=== PATIENT | female | born 1970 | race Hispanic/Latino ===

== ENCOUNTER 2020-03-01 09:20 | Emergency (ER) | payer OTHER, SELFPAY ==
[2020-03-02 14:31] LABS: SARS-CoV-2 MS2 Positive; SARS-CoV-2 N Gene Positive; SARS-CoV-2 S Gene Positive; SARS-CoV-2 orf1ab Positive
== END 2020-03-01 10:32 | disposition home or self-care (01) ==
LOC: ERS 09:20
DX: U07.1 COVID-19 (principal)
CPT/HCPCS: 87635; 99283; U0003

== ENCOUNTER 2020-03-10 21:35 | Inpatient (IN) | payer OTHER, SELFPAY ==
[2020-03-10] MEDS ORDERED: Ondansetron PF 4 MG/2 ML Vial ONE (21:52)
[2020-03-10 22:01] LABS: #Lymphocytes 0.9 thou/uL (1.20-3.40); #Monocytes 0.4 thou/uL (0.11-0.59); %Basophils 0.1 % (0.0-1.0); %Eosinophils 0.1 % (0.0-10.0); %Lymphocytes 7.3 % (21.0-51.0); %Monocytes 3.2 % (0.0-10.0); %Neutrophils 89.4 % (42.0-75.0); Hemoglobin 13.8 g/dL (12.0-16.0); Mean Corpuscular HGB CONC 30.5 g/dL (32.0-36.0); Mean Corpuscular Hemoglobin 25.4 pg (27.0-31.0); Mean Corpuscular Volume 83.4 fL (78.0-98.0); Mean Platelet Volume 7.5 fL (7.4-10.4); Platelet Count 315 thou/uL (130-400); RBC Distribution Width 15.3 % (11.5-14.5); Red Blood Cell (RBC) Count 5.43 mill/uL (4.20-5.40); White Blood Cell (WBC) Count 12.3 thou/uL (4.8-10.8)
--- NOTE | 2020-03-10 22:05 | RAD ---
Exam: Chest one view HISTORY:Decreased O2 saturation Comparison: None FINDINGS: Cardiac silhouette: Normal Aorta: Unremarkable Pulmonary vessels: Normal Costophrenic angles: Clear LUNGS: Patchy interstitial opacities with a predominantly bibasilar and perihilar distribution. Pneumothorax: None Osseous abnormalities: None IMPRESSION: Interstitial opacities, worrisome for infiltrate.
[2020-03-10] MEDS ORDERED: Metoclopramide HCl 10 MG/2 ML VIAL ONE (22:10)
[2020-03-10] MEDS ORDERED: Dexamethasone 10 MG/ML VIAL ONE (22:10)
[2020-03-10] MEDS ORDERED: Albuterol 200 PUFF (6.7GM INHALER) ONE (22:15)
[2020-03-10 22:20] LABS: ALT (SGPT) 71 U/L (8-55); AST (SGOT) 45 U/L (5-34); Albumin 3.6 g/dL (3.5-5.0); Alkaline Phosphatase 147 U/L (40-110); Anion Gap 15 mmol/L (10-20); BUN (Urea Nitrogen) 13 mg/dL (7.0-18.7); Bilirubin, Total 0.5 mg/dL (0.2-1.2); Calc. Creatinine Clearance 0 mL/min (70-130); Calcium 8.8 mg/dL (7.8-10.44); Carbon Dioxide 24 mmol/L (22-29); Chloride 106 mmol/L (98-107); Estimated GFR-MDRD 83; Globulin 3.8 g/dL (2.4-3.5); Glucose 125 mg/dL (70-105); Potassium 3.5 mmol/L (3.5-5.1); Protein, Total 7.4 g/dL (6.0-8.3); Sodium 141 mmol/L (136-145)
[2020-03-10] MEDS ORDERED: Azithromycin 500 MG VIAL ONE (23:03)
[2020-03-11] MEDS ORDERED: Ondansetron ODT 4 MG TAB SL PRN (01:40)
[2020-03-11] MEDS ORDERED: Ondansetron PF 4 MG/2 ML Vial IVP PRN ×2 (01:40→03:44)
[2020-03-11 01:59] VITALS: BMI 32.3
[2020-03-11] MEDS ORDERED: Acetaminophen 325 MG TAB PO PRN (02:26)
[2020-03-11] MEDS ORDERED: Guaifenesin DM 100-10/5 ML UDCUP PO PRN (03:44)
[2020-03-11] MEDS ORDERED: HYDROcodone/Acetaminophen 5/325 mg Tablet PO PRN (03:44)
[2020-03-11] MEDS ORDERED: Morphine 2 MG/ML VIAL SLOW IVP PRN (03:44)
[2020-03-11] MEDS ORDERED: Labetalol HCl 100 MG/20 ML VIAL SLOW IVP PRN (03:44)
[2020-03-11] MEDS ORDERED: hydrALAZINE 20 MG/ML VIAL SLOW IVP PRN (03:44)
[2020-03-11] MEDS ORDERED: cloNIDine 0.1 MG TAB PO PRN (03:44)
[2020-03-11] MEDS ORDERED: Promethazine HCl 12.5 MG in Sodium Chloride 0.9% 50 ML IVPB PRN (03:44)
[2020-03-11] MEDS ORDERED: Bisacodyl 10 MG SUPP PR PRN (03:45)
[2020-03-11] MEDS ORDERED: Bisacodyl 5 MG TAB PO PRN (03:45)
--- NOTE | 2020-03-11 03:48 | PDOC.HHP ---
Hospitalist HPI - History of Present Illness Hypoxia History of Present Illness: Patient is a 49 year old female with no significant PMH who presents to hospital for continued fever and shortness of breath in setting of COVID 19 infection. She was discharged from the hospital yesterday for covid 19 infection. She states that since her discharge her dyspnea has gotten worse and she has had nausea and vomiting. She states that she is unable to hold anything down. She notes a fever at home of 102. Upon presentation to ED she was noted to be in moderate respiratory distress with oxygen saturation in the upper 80s. On 4 L nasal cannula her oxygen saturation improved to 94%. She is comfortable now, complains of pain when she coughs. In ED, WBC 12, RR elevated, febrile in ED. CXR concerning for COVID pneumonia. Patient to be admitted for COVID 19 with likely progressive viral pnemonia and sepsis. Hospitalist ROS - Review of Systems Constitutional: reports: fever, chills, sweats, weakness Eyes: denies: pain, vision change, conjunctivae inflammation, eyelid inflammation, redness, other ENT: denies: ear pain, ear discharge, nose pain, nose discharge, nose congestion , mouth pain, mouth swelling, throat pain, throat swelling, other Respiratory: reports: shortness of breath. denies: cough, dry, hemoptysis, SOB with excertion, pleuritic pain, sputum, wheezing, other Cardiovascular: denies: chest pain, palpitations, orthopnea, paroxysmal noc. dyspnea, edema, light headedness, other Gastrointestinal: reports: nausea, vomiting. denies: abdominal pain, diarrhea, constipation, melena, hematochezia, other Genitourinary: denies: dysuria, frequency, incontinence, hematuria, retention, other Musculoskeletal: denies: neck pain, shoulder pain, arm pain, back pain, hand pain, leg pain, foot pain, other Skin: denies: rash, lesions, modesta, bruising, other Neurological: denies: weakness, numbness, incoordination, change in speech, confusion, seizures, other All other systems reviewed; all pertinent +/- noted in HPI/Subj - Medication Medications: Active Medications Generic Name Dose Route Start Last Admin Trade Name Freq PRN Reason Stop Dose Admin Acetaminophen 650 mg 03/11/20 02:26 03/11/20 02:32 Tylenol PO 650 mg Q4H PRN Administration Headache/Fever or Pain Hospitalist History - Past Medical History Other Medical History: no significant medical history - Past Surgical History Past Surgical History: reports: no pertinent history - Family History Family History: reports: no pertinent history - Social History Smoking Status: Never smoker Alcohol: reports: None Drugs: reports: none - Exam General Appearance: NAD, awake alert Eye: PERRL, anicteric sclera ENT: normocephalic atraumatic, no oropharyngeal lesions, moist mucosa Neck: supple, symmetric, no JVD, no thyromegaly, no lymphadenopathy, no carotid bruit Heart: RRR, no murmur, no gallops, no rubs, normal peripheral pulses Respiratory: CTAB, no wheezes, no rales, no ronchi, normal chest expansion, no tachypnea, normal percussion Gastrointestinal: soft, non-tender, non-distended, normal bowel sounds, no palpable masses, no hepatomegaly, no splenomegaly, no bruit Extremities: no cyanosis, no clubbing, no edema Skin: normal turgor, no lesions, no rashes Neurological: cranial nerve grossly intact, normal sensation to touch, no weakness, no focal deficits, no new deficit Musculoskeletal: normal tone, normal strength, no muscle wasting Psychiatric: normal affect, normal behavior, A&O x 3 Hospitalist Results - Labs Result Diagrams: 03/10/20 21:45 03/10/20 21:45 Lab results: WBC 12.3 thou/uL (4.8-10.8) H 03/10/20 21:45 Hgb 13.8 g/dL (12.0-16.0) 03/10/20 21:45 Hct 45.2 % (36.0-47.0) 03/10/20 21:45 MCV 83.4 fL (78.0-98.0) 03/10/20 21:45 Plt Count 315 thou/uL (130-400) 03/10/20 21:45 Neutrophils % 89.4 % (42.0-75.0) H 03/10/20 21:45 Sodium 141 mmol/L (136-145) 03/10/20 21:45 Potassium 3.5 mmol/L (3.5-5.1) 03/10/20 21:45 Chloride 106 mmol/L (98-107) 03/10/20 21:45 Carbon Dioxide 24 mmol/L (22-29) 03/10/20 21:45 BUN 13 mg/dL (7.0-18.7) 03/10/20 21:45 Creatinine 0.74 mg/dL (0.6-1.1) 03/10/20 21:45 Glucose 125 mg/dL (70-105) H 03/10/20 21:45 Lactic Acid 1.6 mmol/L (0.5-2.2) 03/10/20 22:05 Calcium 8.8 mg/dL (7.8-10.44) 03/10/20 21:45 Total Bilirubin 0.5 mg/dL (0.2-1.2) 03/10/20 21:45 AST 45 U/L (5-34) H 03/10/20 21:45 ALT 71 U/L (8-55) H 03/10/20 21:45 Alkaline Phosphatase 147 U/L (40-110) H 03/10/20 21:45 Troponin I Less than 0.010 ng/mL (< 0.028) 03/10/20 21:45 Serum Total Protein 7.4 g/dL (6.0-8.3) 03/10/20 21:45 Albumin 3.6 g/dL (3.5-5.0) 03/10/20 21:45 Additional comment: VITAL SIGNS [facility] Mar 11, 2020 01:14 LAURA Miramontes, Cindy BP: 113/53 Pulse: 76 Resp: 27 Temp: 101.7 (Oral) Pain: 0 O2 sat: 94 on (4L Oxygen) Time: 03/11/2020 01:14. CXR report reviewed, interstitial opacities worrisome for infiltrate Hospitalist H&P A/P - Plan Plan: Patient is a 49 year old female with no significant PMH who presents to hospital for continued fever and shortness of breath in setting of COVID 19 infection. # COVID 19 infection w/ viral pneumonia # sepsis due to COVID 19 infection - admit to medical [facility] - continue O2 by nasal cannula w/ precautions - decadron, azithromycin - monitor closely DVT/GI ppx Full code
[2020-03-11] MEDS: Famotidine 20 MG TAB PO SCH ×2 (09:10→21:18)
[2020-03-11] MEDS: Enoxaparin Sodium 40 MG/0.4 ML SYRINGE SC SCH (09:10)
--- NOTE | 2020-03-11 15:35 | PDOC.EVN ---
Event Note - Event Note Event Note: This was reviewed. Patient was seen and examined. She was admitted to this facility and discharged after a couple of days with home Decadron. She subsequently had worsening respiratory distress and return to the hospital. She is now requiring 4 L of oxygen however she is feeling somewhat better with that. She did have an episode of diarrhea this morning which was the first time. She has some scattered bilateral rales on exam. I confirmed that she was not on antibiotics at her previous admission. Unfortunately the patient has 2 separate records within the computer system making it difficult to see her previous admission. Nonetheless, her inflammatory markers will be repeated. She is actually on day 10 of the initiation of her symptoms. Will discuss with ID regarding consideration for him to severe. Continue the Decadron and supplemental oxygen.
[2020-03-11] MEDS: Acetaminophen 325 MG TAB PO PRN ×2 (15:37→21:18)
[2020-03-11] MEDS ORDERED: REMDESIVIR (EUA) 200 MG in Sodium Chloride 0.9% 250 ML 210 ML IV SCH (16:00)
[2020-03-11] MEDS: Dexamethasone 10 MG/ML VIAL SLOW IVP SCH (21:17)
[2020-03-12] MEDS ORDERED: Azithromycin 500 MG in Sodium Chloride 0.9% 250 ML 250 ML IVPB SCH (01:00)
[2020-03-12 05:33] LABS: #Lymphocytes 0.7 thou/uL (1.20-3.40); #Monocytes 0.2 thou/uL (0.11-0.59); #Neutrophils 8.5 thou/uL (1.40-6.50); %Basophils 0.1 % (0.0-1.0); %Eosinophils 0.1 % (0.0-10.0); %Lymphocytes 7.3 % (21.0-51.0); %Monocytes 2.4 % (0.0-10.0); %Neutrophils 90.1 % (42.0-75.0); Mean Corpuscular HGB CONC 31.2 g/dL (32.0-36.0); Mean Corpuscular Hemoglobin 26.1 pg (27.0-31.0); Mean Corpuscular Volume 83.7 fL (78.0-98.0); Mean Platelet Volume 7.3 fL (7.4-10.4); Platelet Count 348 thou/uL (130-400); RBC Distribution Width 15.1 % (11.5-14.5); Red Blood Cell (RBC) Count 4.97 mill/uL (4.20-5.40); White Blood Cell (WBC) Count 9.4 thou/uL (4.8-10.8)
[2020-03-12 05:54] LABS: ALT (SGPT) 49 U/L (8-55); AST (SGOT) 24 U/L (5-34); Albumin 3.2 g/dL (3.5-5.0); Alkaline Phosphatase 132 U/L (40-110); Anion Gap 12 mmol/L (10-20); BUN (Urea Nitrogen) 18 mg/dL (7.0-18.7); Bilirubin, Total 0.4 mg/dL (0.2-1.2); Calc. Creatinine Clearance 119 mL/min (70-130); Calcium 8.9 mg/dL (7.8-10.44); Carbon Dioxide 26 mmol/L (22-29); Chloride 108 mmol/L (98-107); Estimated GFR-MDRD 90; Globulin 3.6 g/dL (2.4-3.5); Glucose 125 mg/dL (70-105); Potassium 3.9 mmol/L (3.5-5.1); Protein, Total 6.8 g/dL (6.0-8.3); Sodium 142 mmol/L (136-145)
[2020-03-12] MEDS: Famotidine 20 MG TAB PO SCH ×2 (07:38→20:27)
[2020-03-12] MEDS: Enoxaparin Sodium 40 MG/0.4 ML SYRINGE SC SCH (07:38)
[2020-03-12] MEDS: REMDESIVIR (EUA) 100 MG in Sodium Chloride 0.9% 250 ML 230 ML IV SCH (17:22)
--- NOTE | 2020-03-12 18:45 | PDOC.HOSPP ---
- Subjective Encounter Date: 03/12/20 Subjective: Patient reports she is feeling somewhat better today. Feels like the medications are helping. Breathing a bit easier. Able to move around the room a bit today. - Objective Vital Signs & Weight: Vital Signs (12 hours) Temp Pulse Resp BP Pulse Ox 03/12/20 17:23 98.9 F 59 L 24 H 116/60 97 03/12/20 12:00 98 F 58 L 20 125/80 97 03/12/20 08:00 98.2 F 61 28 H 133/73 98 Weight Admit Weight 170 lb 14.4 oz Weight 170 lb 14.4 oz I&O: 03/11/20 03/12/20 03/13/20 06:59 06:59 06:59 Intake Total 650 1160 Output Total 700 Balance 650 460 Result Diagrams: 03/12/20 05:04 03/12/20 05:05 Hospitalist ROS - Medication Medications: Active Medications Generic Name Dose Route Start Last Admin Trade Name Freq PRN Reason Stop Dose Admin Acetaminophen 650 mg 03/11/20 03:44 03/11/20 21:18 Tylenol PO 650 mg Q4H PRN Administration Headache/Fever/Mild Pain (1-3) Dexamethasone 6 mg 03/11/20 21:00 03/11/20 21:17 Decadron SLOW IVP 6 mg 2100 PANCHITO Administration Enoxaparin Sodium 40 mg 03/11/20 09:00 03/12/20 07:38 Lovenox SC 40 mg 0900 PANCHITO Administration Famotidine 20 mg 03/11/20 09:00 03/12/20 07:38 Pepcid PO 20 mg BID PANCHITO Administration REMDESIVIR (EUA) 100 mg/ 250 mls @ 250 mls/hr 03/12/20 16:00 03/12/20 17:22 Sodium Chloride IV 03/15/20 16:59 250 mls 1600 PANCHITO Administration - Exam General Appearance: NAD, awake alert Heart: RRR, no murmur, no gallops, no rubs, normal peripheral pulses Respiratory: no wheezes, no ronchi, normal chest expansion, no tachypnea, normal percussion, rales (Modest scattered.) Gastrointestinal: soft, non-tender, non-distended, normal bowel sounds, no palpable masses, no hepatomegaly, no splenomegaly, no bruit Extremities: no cyanosis, no clubbing, no edema Skin: normal turgor, no lesions, no rashes Neurological: cranial nerve grossly intact, normal sensation to touch, no weakness, no focal deficits, no new deficit Musculoskeletal: normal tone, normal strength, no muscle wasting Psychiatric: normal affect, normal behavior, A&O x 3 Hosp A/P (1) Acute respiratory failure with hypoxia Code(s): J96.01 - ACUTE RESPIRATORY FAILURE WITH HYPOXIA Status: Acute (2) COVID-19 virus infection Code(s): U07.1 - COVID-19 Status: Acute (3) Viral pneumonia Code(s): J12.9 - VIRAL PNEUMONIA, UNSPECIFIED Status: Acute - Plan Continue with supplemental oxygen. Continue with remdesivir, Decadron. She will need to complete a 5-day course of the Remdesivir. Maintain modest ambulation.
[2020-03-12] MEDS: Dexamethasone 10 MG/ML VIAL SLOW IVP SCH (20:27)
[2020-03-13 05:16] LABS: #Lymphocytes 0.7 thou/uL (1.20-3.40); #Monocytes 0.4 thou/uL (0.11-0.59); #Neutrophils 4.8 thou/uL (1.40-6.50); %Basophils 0.3 % (0.0-1.0); %Eosinophils 0.2 % (0.0-10.0); %Lymphocytes 11.3 % (21.0-51.0); %Neutrophils 82.3 % (42.0-75.0); Hemoglobin 12.7 g/dL (12.0-16.0); Mean Corpuscular HGB CONC 31.6 g/dL (32.0-36.0); Mean Corpuscular Hemoglobin 26.3 pg (27.0-31.0); Mean Corpuscular Volume 83.2 fL (78.0-98.0); Mean Platelet Volume 7.5 fL (7.4-10.4); Platelet Count 405 thou/uL (130-400); RBC Distribution Width 15.1 % (11.5-14.5); Red Blood Cell (RBC) Count 4.81 mill/uL (4.20-5.40); White Blood Cell (WBC) Count 5.8 thou/uL (4.8-10.8)
[2020-03-13 05:45] LABS: ALT (SGPT) 46 U/L (8-55); AST (SGOT) 21 U/L (5-34); Albumin 3.2 g/dL (3.5-5.0); Alkaline Phosphatase 125 U/L (40-110); Anion Gap 12 mmol/L (10-20); BUN (Urea Nitrogen) 18 mg/dL (7.0-18.7); Bilirubin, Total 0.3 mg/dL (0.2-1.2); Calc. Creatinine Clearance 121 mL/min (70-130); Calcium 8.8 mg/dL (7.8-10.44); Carbon Dioxide 26 mmol/L (22-29); Chloride 109 mmol/L (98-107); Estimated GFR-MDRD Greater than 90; Globulin 3.5 g/dL (2.4-3.5); Glucose 154 mg/dL (70-105); Potassium 4.1 mmol/L (3.5-5.1); Protein, Total 6.7 g/dL (6.0-8.3); Sodium 143 mmol/L (136-145)
[2020-03-13] MEDS: Famotidine 20 MG TAB PO SCH ×2 (09:20→20:30)
[2020-03-13] MEDS: Enoxaparin Sodium 40 MG/0.4 ML SYRINGE SC SCH (09:21)
--- NOTE | 2020-03-13 11:03 | PDOC.HOSPP ---
- Subjective Encounter Date: 03/13/20 Subjective: Doing very well today. She is down to 2 L nasal cannula and feels like her breathing is much improved. Still has mild cough. - Objective Vital Signs & Weight: Vital Signs (12 hours) Temp Pulse Resp BP Pulse Ox 03/13/20 03:41 98.6 F 59 L 20 132/68 96 03/13/20 00:00 98.5 F 82 20 137/86 97 Weight Admit Weight 170 lb 14.4 oz Weight 170 lb 14.4 oz I&O: 03/12/20 03/13/20 03/14/20 06:59 06:59 06:59 Intake Total 1160 1660 Output Total 700 1850 Balance 460 -190 Result Diagrams: 03/13/20 04:53 03/13/20 04:53 Hospitalist ROS - Medication Medications: Active Medications Generic Name Dose Route Start Last Admin Trade Name Freq PRN Reason Stop Dose Admin Acetaminophen 650 mg 03/11/20 03:44 03/11/20 21:18 Tylenol PO 650 mg Q4H PRN Administration Headache/Fever/Mild Pain (1-3) Dexamethasone 6 mg 03/11/20 21:00 03/12/20 20:27 Decadron SLOW IVP 6 mg 2100 PANCHITO Administration Enoxaparin Sodium 40 mg 03/11/20 09:00 03/13/20 09:21 Lovenox SC 40 mg 0900 PANCHITO Administration Famotidine 20 mg 03/11/20 09:00 03/13/20 09:20 Pepcid PO 20 mg BID PANCHITO Administration REMDESIVIR (EUA) 100 mg/ 250 mls @ 250 mls/hr 03/12/20 16:00 03/12/20 17:22 Sodium Chloride IV 03/15/20 16:59 250 mls 1600 PANCHITO Administration - Exam General Appearance: NAD, awake alert Heart: RRR, no murmur, no gallops, no rubs, normal peripheral pulses Respiratory: CTAB, no wheezes, no rales, no ronchi, normal chest expansion, no tachypnea, normal percussion Gastrointestinal: soft, non-tender, non-distended, normal bowel sounds, no palpable masses, no hepatomegaly, no splenomegaly, no bruit Extremities: no cyanosis, no clubbing, no edema Skin: normal turgor Psychiatric: normal affect, normal behavior, A&O x 3 Hosp A/P (1) Acute respiratory failure with hypoxia Code(s): J96.01 - ACUTE RESPIRATORY FAILURE WITH HYPOXIA Status: Acute (2) COVID-19 virus infection Code(s): U07.1 - COVID-19 Status: Acute (3) Viral pneumonia Code(s): J12.9 - VIRAL PNEUMONIA, UNSPECIFIED Status: Acute - Plan Continue with supplemental oxygen. Continue with remdesivir, Decadron. She will need to complete a 5-day course of the Remdesivir. Today is day 2 of 5. Maintain modest ambulation. Inflammatory markers have significantly improved.
[2020-03-13] MEDS: REMDESIVIR (EUA) 100 MG in Sodium Chloride 0.9% 250 ML 230 ML IV SCH (16:55)
[2020-03-13] MEDS: Dexamethasone 10 MG/ML VIAL SLOW IVP SCH (20:29)
[2020-03-14 05:25] LABS: #Lymphocytes 0.7 thou/uL (1.20-3.40); #Monocytes 0.3 thou/uL (0.11-0.59); #Neutrophils 4.8 thou/uL (1.40-6.50); %Basophils 0.2 % (0.0-1.0); %Eosinophils 0.4 % (0.0-10.0); %Lymphocytes 12.3 % (21.0-51.0); %Monocytes 5.3 % (0.0-10.0); %Neutrophils 81.8 % (42.0-75.0); Hemoglobin 12.4 g/dL (12.0-16.0); Mean Corpuscular HGB CONC 30.9 g/dL (32.0-36.0); Mean Corpuscular Hemoglobin 25.6 pg (27.0-31.0); Mean Platelet Volume 7.2 fL (7.4-10.4); Platelet Count 417 thou/uL (130-400); RBC Distribution Width 14.8 % (11.5-14.5); Red Blood Cell (RBC) Count 4.84 mill/uL (4.20-5.40); White Blood Cell (WBC) Count 5.8 thou/uL (4.8-10.8)
[2020-03-14] MEDS: Enoxaparin Sodium 40 MG/0.4 ML SYRINGE SC SCH (07:59)
[2020-03-14] MEDS: Famotidine 20 MG TAB PO SCH ×2 (11:30→19:24)
[2020-03-14] MEDS: Acetaminophen 325 MG TAB PO PRN (11:35)
--- NOTE | 2020-03-14 13:44 | PDOC.HOSPP ---
- Subjective Encounter Date: 03/14/20 Subjective: Patient reports she is doing very well today. Her breathing feels fairly comfortable. She has no specific complaints. - Objective Vital Signs & Weight: Vital Signs (12 hours) Temp Pulse Resp BP BP Pulse Ox 03/14/20 11:30 98 F 57 L 20 119/57 L 93 L 03/14/20 08:07 97.8 F 51 L 18 136/65 95 03/14/20 05:24 95 03/14/20 04:05 97.9 F 54 L 20 147/70 H 95 Weight Admit Weight 170 lb 14.4 oz Weight 170 lb 14.4 oz I&O: 03/13/20 03/14/20 03/15/20 06:59 06:59 06:59 Intake Total 1660 1490 230 Output Total 1850 1250 Balance -190 240 230 Result Diagrams: 03/14/20 05:16 03/13/20 04:53 Hospitalist ROS - Medication Medications: Active Medications Generic Name Dose Route Start Last Admin Trade Name Freq PRN Reason Stop Dose Admin Acetaminophen 650 mg 03/11/20 03:44 03/14/20 11:35 Tylenol PO 650 mg Q4H PRN Administration Headache/Fever/Mild Pain (1-3) Dexamethasone 6 mg 03/11/20 21:00 03/13/20 20:29 Decadron SLOW IVP 6 mg 2100 PANCHITO Administration Enoxaparin Sodium 40 mg 03/11/20 09:00 03/14/20 07:59 Lovenox SC 40 mg 0900 PANCHITO Administration Famotidine 20 mg 03/11/20 09:00 03/14/20 11:30 Pepcid PO 20 mg BID PANCHITO Administration REMDESIVIR (EUA) 100 mg/ 250 mls @ 250 mls/hr 03/12/20 16:00 03/13/20 16:55 Sodium Chloride IV 03/15/20 16:59 250 mls 1600 PANCHITO Administration - Exam General Appearance: NAD, awake alert Heart: RRR, no murmur, no gallops, no rubs, normal peripheral pulses Respiratory: CTAB, no wheezes, no rales, no ronchi, normal chest expansion, no tachypnea, normal percussion Gastrointestinal: soft, non-tender, non-distended, normal bowel sounds, no palpable masses, no hepatomegaly, no splenomegaly, no bruit Extremities: no cyanosis, no clubbing, no edema Skin: normal turgor Musculoskeletal: normal tone, normal strength, no muscle wasting Psychiatric: normal affect, normal behavior, A&O x 3 Hosp A/P (1) Acute respiratory failure with hypoxia Code(s): J96.01 - ACUTE RESPIRATORY FAILURE WITH HYPOXIA Status: Acute (2) COVID-19 virus infection Code(s): U07.1 - COVID-19 Status: Acute (3) Viral pneumonia Code(s): J12.9 - VIRAL PNEUMONIA, UNSPECIFIED Status: Acute - Plan Continue with supplemental oxygen. Continue with remdesivir, Decadron. She will need to complete a 5-day course of the Remdesivir. Today is day 4 of 5. Maintain modest ambulation. Inflammatory markers have significantly improved. Anticipate discharge tomorrow. May need some home oxygen.
[2020-03-14] MEDS: REMDESIVIR (EUA) 100 MG in Sodium Chloride 0.9% 250 ML 230 ML IV SCH (17:09)
[2020-03-14] MEDS: Senokot S 8.6-50 MG TAB PO SCH (19:24)
[2020-03-14] MEDS: Dexamethasone 10 MG/ML VIAL SLOW IVP SCH (19:24)
[2020-03-15] MEDS: Enoxaparin Sodium 40 MG/0.4 ML SYRINGE SC SCH (08:04)
[2020-03-15] MEDS: Famotidine 20 MG TAB PO SCH (08:04)
[2020-03-15] MEDS: Senokot S 8.6-50 MG TAB PO SCH (08:04)
[2020-03-15] MEDS: REMDESIVIR (EUA) 100 MG in Sodium Chloride 0.9% 250 ML 230 ML IV SCH (17:09)
[2020-03-15 18:51] VITALS: BP 111/74; TEMP 98.6
--- NOTE | 2020-03-16 09:09 | DIS ---
DATE OF ADMISSION: 03/11/2020 DATE OF DISCHARGE: 03/15/2020 DISCHARGE DIAGNOSES: 1. Acute hypoxic respiratory failure. 2. COVID pneumonia. HISTORY OF PRESENT ILLNESS: The patient is a 49-year-old female who presented initially through the emergency department reporting shortness of breath. The patient had known COVID-19 infection and had been previously admitted and done reasonably well on discharge, but subsequently became worse and presented back to the hospital with shortness of breath and some nausea and vomiting. She had some fever at home. She was noted to be in hypoxic respiratory failure. HOSPITAL COURSE: The patient was admitted back to the hospital. She was placed on nasal cannula oxygen. Conversation with ID confirmed the patient was a reasonable candidate for Remdesivir, which was initiated over the following 5 days. The patient continued to improve. Her oxygenation improved and she was able to come off oxygen when she completed the 5 days of Remdesivir. She was felt to be stable for discharge. DISCHARGE PHYSICAL EXAMINATION: VITAL SIGNS: On the day of discharge, temperature was 98.6, pulse 58, respirations 22, O2 saturation 99% on room air, blood pressure was 111/74. GENERAL APPEARANCE: Age-appropriate female, in no distress. She was awake and alert. HEART: Regular. LUNGS: Clear. ABDOMEN: Benign. EXTREMITIES: No edema. DISPOSITION: The patient is discharged home. DIET: She is to be on a regular diet. ACTIVITY: As tolerated. She is to remain in isolation until she is asymptomatic for 3 consecutive days. MEDICATIONS: Include albuterol HFA p.r.n. FOLLOWUP: She is to follow up with Lety Barnett PA-C in [place]. She can return to the hospital at anytime she needs to do so. Time spent in discharge activities greater than 30 minutes. Job ID: [id number]
--- NOTE | 2020-03-17 04:37 | PQF ---
Dear : Leroy Morrison Date: 03/17/20 Please exercise your independent, professional judgment in responding to the clarification form. Clinical indicators are provided on the bottom of this form for your review Can you please further clarify if Sepsis is ruled in or ruled out? Sepsis [ ] Ruled in diagnosis [ ] Continue to treat [ ] Resolved [ x ] Ruled out diagnosis [ ] Improving [ ] Cannot rule out diagnosis [ ] Other diagnosis please specify [ ] Unable to determine Physician Signature: Date/Time: For continuity of documentation, please document condition throughout progress notes and discharge summary. Thank You. To be completed by CDI/Coding staff for physician review: Present Clinical Indicators - Signs / Symptoms / Labs Results and Location in Medical Record [ x ] VS: BP 153/91, RR 43, Pulse 92, Temp 101.7 ED Provider pg.2 [ x ] Continued fever and SOB in setting of COVID19 infection H and P pg.1 [ x ] Progressive viral pneumonia and Sepsis H and P pg.1 [ x ] Sepsis due to COVID19 infection H and P pg.4 [ x ] WBC 12.3H, 9.4, 5.8, 5.8 Laboratory [ x ] Interstitial opacities, worrisome for infiltrate Chest Xray 03/10 [ x ] Acute hypoxic respiratory failure DS 03/15 [ x ] Lactate: 03/10=1.6 Labs Lactate: 03/10 Present Risk Factors Results and Location in Medical Record [ x ] 49 years old H and P pg.1 [ x ] COVID19 infection with viral pneumonia H and P pg.4 Present Treatments Results and Location in Medical Record [ x ] Dexamethasone 10mg IV MAR [ x ] Azithromycin 500 mg Oral MAR [ x ] IV Fluids MAR [ x ] Remdesivir 200mg IV MAR [ x ] Chest Xray Collected 03/10 [ x ] Oxygen via [facility] HP 03/11 [facility] Signature: Etelvinauma Sholayakelin Chenalejandramarisabel Phone #: ext [phone] Date: 03/17/20 GINGER
== END 2020-03-15 18:50 | disposition home or self-care (01) | DRG 177 ==
LOC: ERS 21:35 → 2SW 03-11 01:37
PROVIDERS: ADMIT Internal Medicine; ATTEND Internal Medicine
PROC: 8E0ZXY6 Isolation (ICD-10-PCS; principal; 2020-03-11)
PROC: 3E03329 Introduction of Other Anti-infective into Peripheral Vein, Percutaneous Approach (ICD-10-PCS; 2020-03-11)
DX: U07.1 COVID-19 (principal); J12.89 Other viral pneumonia; J96.01 Acute respiratory failure with hypoxia
CPT/HCPCS: 36415; 71045; 80053; 82728; 83605; 84484; 85025; 85379; 86140; 93005; 96365; 96375; J0456; J1100; J1650; J2405; J2765